=== PATIENT | female | born 1970 | race Caucasian/White ===

== ENCOUNTER 2016-05-04 22:58 | Emergency (ER) | payer OTHER ==
[~2016-05-04] VITALS: Ht 167.6 cm; Wt 71.1 kg
[~2016-05-04 22:58] MED LIST: AMBIEN CR12.5 MG PO; CYMBALTA60 MG PO; Cymbalta PO; DICYCLOMINE HCL10 MG PO; DILAUDID2 MG PO; EXALGO8 MG PO; Exalgo PO; FENTANYL1 EAC1 TD; FIORICET,ESG1 TABLET PO; IMITREX6 MG/0.5 M SQ; Imitrex SC; LEVOTHYROXINE50 MCG PO; LODINE PO; LODINE400 MG PO; LOPRESSOR50 MG PO; METOPROLOL TART50 MG PO; RESTORIL30 MG PO; ROZEREM PO; SUMATRIPTA6 MG/0.5 M SC; SUMATRIPTAN SU100 MG PO; TIZANIDINE HCL4 MG PO; TOPAMAX200 MG PO; TRAZODONE HCL50 MG PO; TRETINOIN45 GM TP; ZANAFLEX4 M1 PO; ZOLPIDEM TART12.5 MG PO; ZYRTEC10 M3 PO; [UNRECOGNIZED DRUG - OTHER] TP
[2016-05-04 23:47] LABS: HEMATOCRIT 44.1 % (36.0-46.0); MCH 29.7 PG (29.0-34.0); MCHC 35.6 G/DL (30.0-36.0); MCV 83.5 FL (83-99); MEAN PLAT.VOLUME 10.5 uM^3 (9.5-12.4); PLATELET COUNT 257 K/uL (156-360); RBC DIS.WIDTH-CV 12.5 % (11.8-14.6); RBC DIS.WIDTH-SD 37.9 % (39-53); RED BLOOD COUNT 5.28 M/uL (3.80-5.20); WHITE BLOOD COUNT 8.4 K/uL (4.1-10.2)
[2016-05-04 23:59] LABS: CHLORIDE 104 mEq/L (99-109); POTASSIUM 3.7 mEq/L (3.7-5.4); SODIUM 140 mEq/L (136-147)
[2016-05-05 00:01] LABS: GLUCOSE 122 mg/dL (70-99)
[2016-05-05 00:03] LABS: ANION GAP 15 MEQ/L (2-14)
[2016-05-05 00:05] LABS: ALKALINE PHOSPHATASE 55 IU/L (3-129); GFR ESTIMATE (CALCULATED) > 59 mL/min/
[2016-05-05 00:06] LABS: UREA NITROGEN (BUN) 10 mg/dL (9-23)
[2016-05-05 00:15] LABS: QUANTITATIVE HCG < 4.0 MIU/ML
[2016-05-05 00:46] LABS: ADD MIUA? YES; BILIRUBIN NEGATIVE; BLOOD NEGATIVE; COLOR DK YELLOW ((YELLOW)); GLUCOSE (STRIP) NEGATIVE; KETONES 40; LEUKOCYTES NEGATIVE; NITRITE NEGATIVE; PH, URINE 7.5 (5-8); PROTEIN (STRIP) 30; SPECIFIC GRAVITY 1.029 (1.000-1.030)
[2016-05-05 01:16] LABS: LIPASE 18 U/L (1.0-51.0)
[2016-05-05 01:43] LABS: RED BLOOD CELLS 0-5 /HPF (0-5); WHITE BLOOD CELLS 0-5 /HPF (0-5)
[2016-05-05 01:44] LABS: BACTERIA 1+; CASTS NONE SEEN /LPF; CRYSTALS NONE SEEN; EPITHELIAL CELLS 2+; MUCUS RARE; UCUL ADDED? NO
[2016-05-05] MEDS ORDERED: ZOFRAN4 MG PO (03:57)
[2016-05-05 04:54] VITALS: BP 112/72
== END 2016-05-05 04:56 | disposition home or self-care (01) ==
LOC: EME 22:58
DX: E86.0 Dehydration (principal); R11.2 Nausea with vomiting, unspecified; R10.30 Lower abdominal pain, unspecified; J45.909 Unspecified asthma, uncomplicated; M79.7 Fibromyalgia; K21.9 Gastro-esophageal reflux disease without esophagitis; G89.29 Other chronic pain
CPT/HCPCS: 74177; 80053; 81003; 83690; 84702; 85027; 99281; 99285; J1170; J2405; J7030

== ENCOUNTER 2016-11-18 22:51 | Emergency (ER) | payer OTHER ==
[~2016-11-18] VITALS: Ht 167.6 cm; Wt 72.1 kg
[~2016-11-18 22:51] MED LIST changes: +ZOFRAN4 MG PO
[2016-11-18 23:28] LABS: POINT-OF-CARE METER ID UU13113778
[2016-11-19 00:12] LABS: HEMATOCRIT 40.9 % (36.0-46.0); MCV 88.5 FL (83-99); PLATELET COUNT 154 K/uL (156-360); RBC DIS.WIDTH-CV 12.3 % (11.8-14.6); RBC DIS.WIDTH-SD 39.3 % (39-53); RED BLOOD COUNT 4.62 M/uL (3.80-5.20); WHITE BLOOD COUNT 4.8 K/uL (4.1-10.2)
[2016-11-19 00:23] LABS: AMYLASE 108 IU/L (1-118); CHLORIDE 97 mEq/L (99-109); POTASSIUM 3.3 mEq/L (3.7-5.4); SODIUM 136 mEq/L (136-147)
[2016-11-19 00:25] LABS: GLUCOSE 103 mg/dL (70-99)
[2016-11-19 00:26] LABS: ANION GAP 13 MEQ/L (2-14)
[2016-11-19 00:27] LABS: TOTAL BILIRUBIN 0.7 mg/dL (0.0-1.0)
[2016-11-19 00:28] LABS: ALKALINE PHOSPHATASE 56 IU/L (3-129)
[2016-11-19 00:29] LABS: GFR ESTIMATE (CALCULATED) > 59 mL/min/
[2016-11-19 00:30] LABS: UREA NITROGEN (BUN) 9 mg/dL (9-23)
[2016-11-19 00:32] LABS: LIPASE 12 U/L (1.0-51.0)
[2016-11-19 00:50] LABS: ADD MIUA? NO; BILIRUBIN NEGATIVE; BLOOD NEGATIVE; COLOR YELLOW ((YELLOW)); GLUCOSE (STRIP) NEGATIVE; KETONES 80; LEUKOCYTES NEGATIVE; NITRITE NEGATIVE; PROTEIN (STRIP) 30; SPECIFIC GRAVITY 1.017 (1.000-1.030); UCUL ADDED? NO; UROBILINOGEN 0.2 MG/DL (0.2-1.0)
[2016-11-19] MEDS ORDERED: PHENERGAN12.5 MG PR (02:47)
[2016-11-19 02:59] VITALS: BP 123/83
== END 2016-11-19 03:03 | disposition home or self-care (01) ==
LOC: EME 22:51
PROVIDERS: Physician Assistant
DX: M54.9 Dorsalgia, unspecified (principal); G89.29 Other chronic pain; R11.2 Nausea with vomiting, unspecified; R19.7 Diarrhea, unspecified; E87.6 Hypokalemia; K21.9 Gastro-esophageal reflux disease without esophagitis
CPT/HCPCS: 80053; 81003; 82150; 82948; 83690; 85027; 99281; 99285; J1630; J1885; J2405; J2765; J3360; J7030; J7050

== ENCOUNTER 2017-05-28 18:29 | Emergency (ER) | payer OTHER ==
[~2017-05-28] VITALS: Ht 167.6 cm; Wt 75.4 kg
[~2017-05-28 18:29] MED LIST changes: +PHENERGAN12.5 MG PR
[2017-05-28 20:31] VITALS: BP 139/96
== END 2017-05-28 20:31 | disposition home or self-care (01) ==
LOC: EME 18:29
DX: S09.90XA Unspecified injury of head, initial encounter (principal); W00.0XXA Fall on same level due to ice and snow, initial encounter; Y93.01 Activity, walking, marching and hiking; M79.7 Fibromyalgia; E03.9 Hypothyroidism, unspecified; Z88.5 Allergy status to narcotic agent
CPT/HCPCS: 99281; 99283

== ENCOUNTER 2017-05-29 17:05 | Emergency (ER) | payer OTHER ==
[~2017-05-29] VITALS: Ht 167.6 cm; Wt 73.4 kg
[2017-05-29 20:53] VITALS: BP 137/88
== END 2017-05-29 20:55 | disposition home or self-care (01) ==
LOC: EME 17:05
PROVIDERS: Physician Assistant
DX: R51 Headache (principal); B34.9 Viral infection, unspecified; G89.29 Other chronic pain; M54.9 Dorsalgia, unspecified; J45.909 Unspecified asthma, uncomplicated; M79.7 Fibromyalgia; K21.9 Gastro-esophageal reflux disease without esophagitis; F32.9 Major depressive disorder, single episode, unspecified; W00.0XXA Fall on same level due to ice and snow, initial encounter; Y93.H1 Activity, digging, shoveling and raking; Z88.5 Allergy status to narcotic agent
CPT/HCPCS: 70450; 87502; 99281; 99284; J0780; J7030